=== PATIENT | female | born 1965 | race Caucasian/White ===

== ENCOUNTER 2019-01-07 15:51 | Inpatient (IN) | payer MEDICARE ==
[~2019-01-07] VITALS: Ht 160 cm; Wt 124.7 kg
[2019-01-07] MEDS ORDERED: ADVAIR 250/501 DISK INH (16:05)
[2019-01-07] MEDS ORDERED: SYMBICORT 16010.2 GM INH (16:05)
[2019-01-07] MEDS ORDERED: IPRAT-ALBUT 0.5-3 ML UPD (16:05)
[2019-01-07] MEDS ORDERED: CYMBALTA60 MG PO (16:05)
[2019-01-07] MEDS ORDERED: EPIPEN 2-P0.3 MG/0.3 IM (16:05)
[2019-01-07] MEDS ORDERED: LISINOPRIL2.5 MG PO (16:06)
[2019-01-07] MEDS ORDERED: BUPROPION HCL100 M1 PO (16:06)
[2019-01-07] MEDS ORDERED: TOPROL XL50 MG PO (16:07)
[2019-01-07] MEDS ORDERED: NOVOLOG100 UNIT/1 SC (16:08)
[2019-01-07] MEDS ORDERED: GLIPIZIDE10 MG PO (16:08)
[2019-01-07] MEDS ORDERED: LEVEMIR FL100 UNIT/1 SC (16:09)
[2019-01-07] MEDS ORDERED: GLUCOPHAGE1000 MG PO (16:09)
[2019-01-07] MEDS ORDERED: CELEXA40 MG PO (16:10)
[2019-01-07] MEDS ORDERED: ZOCOR80 MG PO (16:10)
[2019-01-07] MEDS ORDERED: PLAVIX75 MG PO (16:10)
[2019-01-07] MEDS ORDERED: ESTRACE 0.5 MG0.5 MG PO (16:11)
[2019-01-07] MEDS ORDERED: PROTONIX40 MG PO (16:11)
[2019-01-07] MEDS ORDERED: LASIX40 MG PO (16:11)
[2019-01-07 16:45] LABS: BASOPHILS 0.2 % (0-2); EOSINOPHILS 1.3 % (0-7); HEMATOCRIT 43.7 % (36.0-48.0); HEMOGLOBIN 14.2 g/dL (12-16); IMMATURE GRANULOCYTES 0.6 % (0-5); LYMPHOCYTES 23.7 % (15-50); MCHC 32.5 g/dL (31.0-37.0); MCV 92.2 fL (80.0-100.0); MEAN PLATELET VOLUME 10.4 fL (7.4-10.4); MONOCYTES 5.4 % (2-11); NEUTROPHILS 68.8 % (40-80); PLATELET COUNT 249 10x3/uL (130-400); RBC 4.74 10x6/uL (4.00-5.40); RDW 14.5 % (11.5-14.5); WBC 16.2 10x3/uL (4.8-10.8)
[2019-01-07 17:15] LABS: ALKALINE PHOSPHATASE 111 U/L (46-116); ALT (SGPT) 16 U/L (10-68); BILIRUBIN - TOTAL 0.29 mg/dL (0.2-1.3); CALC OSMOLALITY 296 mosm/kg (275-300); CARBON DIOXIDE 34.2 mmol/L (21.0-32.0); CHLORIDE - SERUM 98 mmol/L (98-107); CREATININE - SERUM 0.7 mg/dL (0.6-1.3); POTASSIUM - SERUM 3.9 mmol/L (3.5-5.1); PROTEIN - SERUM 6.9 g/dL (6.4-8.2); SODIUM 139 mmol/L (136-145); TROPONIN-I < 0.017 ng/mL (0.000-0.060); UREA NITROGEN 9 mg/dL (7-18); eGFR NON AFRICAN AMERICAN > 90 mL/min (90-120)
[2019-01-07 17:17] LABS: GLUCOSE 464 mg/dL (74-106)
[2019-01-07 17:38] LABS: KETONE - SERUM NEGATIVE (NEGATIVE)
[2019-01-07 17:41] LABS: MAGNESIUM - SERUM 1.5 mg/dL (1.8-2.4)
[2019-01-07 18:46] VITALS: BP 197/64
--- NOTE | 2019-01-07 18:47 | NUR ---
URINE SPECIMEN OBTIANED, LABELED AT BS AND SENT TO LAB
[2019-01-07 19:00] LABS: APPEARANCE CLEAR (CLEAR); COLOR YELLOW (YELLOW)
[2019-01-07 19:01] LABS: BILIRUBIN NEGATIVE (NEGATIVE); GLUCOSE NEGATIVE (NEGATIVE); KETONE NEGATIVE (NEGATIVE); NITRITE NEGATIVE (NEGATIVE); PROTEIN NEGATIVE (NEGATIVE); UROBILINOGEN NORMAL (NORMAL)
--- NOTE | 2019-01-07 19:05 | NUR ---
REPORT TO LARISA STRINGER
--- NOTE | 2019-01-07 20:35 | NUR ---
PT AMBULATED TO RESTROOM INDEPENDENTLY.
[2019-01-07 23:10] VITALS: BP 180/52; BMI 48.8
[2019-01-08] VITALS: BP 180/52
[2019-01-08 04:00] VITALS: BP 179/61
[2019-01-08 07:35] LABS: BASOPHILS 0.1 % (0-2); EOSINOPHILS 0 % (0-7); HEMATOCRIT 44.1 % (36.0-48.0); HEMOGLOBIN 14.5 g/dL (12-16); LYMPHOCYTES 10.9 % (15-50); MCH 30.3 pg (26.0-34.0); MCHC 32.9 g/dL (31.0-37.0); MCV 92.1 fL (80.0-100.0); MEAN PLATELET VOLUME 10.7 fL (7.4-10.4); MONOCYTES 0.5 % (2-11); NEUTROPHILS 87.5 % (40-80); PLATELET COUNT 247 10x3/uL (130-400); RBC 4.79 10x6/uL (4.00-5.40); RDW 14.4 % (11.5-14.5); WBC 17.4 10x3/uL (4.8-10.8)
[2019-01-08 08:04] LABS: CALCIUM 9.2 mg/dL (8.5-10.1); CARBON DIOXIDE 32.5 mmol/L (21.0-32.0); CHLORIDE - SERUM 96 mmol/L (98-107); CREATININE - SERUM 0.8 mg/dL (0.6-1.3); MAGNESIUM - SERUM 1.5 mg/dL (1.8-2.4); PHOSPHOROUS 2.9 mg/dL (2.5-4.9); PRO BNP 251 pg/mL (0-125); SODIUM 137 mmol/L (136-145); eGFR NON AFRICAN AMERICAN 79 mL/min (90-120)
[2019-01-08 08:08] LABS: CALC OSMOLALITY 295 mosm/kg (275-300); UREA NITROGEN 12 mg/dL (7-18)
[2019-01-08 08:09] LABS: GLUCOSE 487 mg/dL (74-106)
[2019-01-08 09:00] VITALS: BP 169/55
--- NOTE | 2019-01-08 09:50 | NUR ---
PT ALERT X 4. BREATH SOUNDS CLEAR BILAT, 3L O2 PER NC. PT REPORTING PAIN OF 6/10 TO RIBS FROM COUGHING. IV TO LEFT AC, PATENT, DRESSING CDI. BED LOW, CALL LIGHT IN REACH. NO OTHER NEEDS AT THIS TIME.
[2019-01-08 11:31] VITALS: Ht 160 cm; Wt 124.7 kg
[2019-01-08 17:23] VITALS: BP 154/51
[2019-01-08 20:07] VITALS: BP 144/50
[2019-01-09 00:31] VITALS: BP 161/59
[2019-01-09 04:23] VITALS: BP 153/54
[2019-01-09 07:01] LABS: GLUCOSE 449 mg/dL (74-106)
[2019-01-09 09:09] VITALS: BP 177/70
[2019-01-09 09:25] LABS: BASOPHILS 0.1 % (0-2); EOSINOPHILS 0 % (0-7); HEMATOCRIT 42.6 % (36.0-48.0); HEMOGLOBIN 14.1 g/dL (12-16); IMMATURE GRANULOCYTES 0.5 % (0-5); LYMPHOCYTES 14.2 % (15-50); MCH 30.5 pg (26.0-34.0); MCHC 33.1 g/dL (31.0-37.0); MONOCYTES 3.3 % (2-11); NEUTROPHILS 81.9 % (40-80); PLATELET COUNT 258 10x3/uL (130-400); RBC 4.63 10x6/uL (4.00-5.40); RDW 14.6 % (11.5-14.5); WBC 15.7 10x3/uL (4.8-10.8)
--- NOTE | 2019-01-09 09:31 | NUR ---
PT ALERT X 4. BREATH SOUNDS DIMINISHED, 3L O2 PER NC. TELEMETRY IN USE. IV TO LEFT AC, PATENT, DRESSING CDI. PT REPORTING PAIN OF 7/10, MEDICATED WITH TYLENOL ORDERED, WILL MONITOR. BED LOW, CALL LIGHT IN REACH. NO OTHER NEEDS AT THIS TIME.
[2019-01-09 09:41] LABS: CALC OSMOLALITY 300 mosm/kg (275-300); CARBON DIOXIDE 33.7 mmol/L (21.0-32.0); CHLORIDE - SERUM 99 mmol/L (98-107); CREATININE - SERUM 0.8 mg/dL (0.6-1.3); POTASSIUM - SERUM 4.3 mmol/L (3.5-5.1); SODIUM 139 mmol/L (136-145); UREA NITROGEN 22 mg/dL (7-18); eGFR NON AFRICAN AMERICAN 79 mL/min (90-120)
[2019-01-09 16:29] VITALS: BP 165/57
[2019-01-09 19:14] VITALS: BP 163/58
--- NOTE | 2019-01-09 19:15 | NUR ---
PATIENT SITTING UP AT THE SIDE OF THE BED AND DENIES NEEDS AT THIS TIME. NO S/S OF DISTRESS. VSS, BLOOD PRESSURE ELEVATED. BED IN LOWEST POSITION AND CALL LIGHT WITHIN REACH. ENCOURAGED THE PATIENT TO CALL IF SHE HAS NEEDS. WILL CONTINUE TO MONITOR.
[2019-01-10] VITALS (7 sets, daily range): BP systolic 162–180; BP diastolic 52–73
[2019-01-10 04:42] LABS: BASOPHILS 0 % (0-2); EOSINOPHILS 0 % (0-7); HEMATOCRIT 41.7 % (36.0-48.0); HEMOGLOBIN 13.5 g/dL (12-16); IMMATURE GRANULOCYTES 0.7 % (0-5); LYMPHOCYTES 13.3 % (15-50); MCH 29.7 pg (26.0-34.0); MCHC 32.4 g/dL (31.0-37.0); MCV 91.9 fL (80.0-100.0); MEAN PLATELET VOLUME 10.6 fL (7.4-10.4); MONOCYTES 5.1 % (2-11); NEUTROPHILS 80.9 % (40-80); PLATELET COUNT 252 10x3/uL (130-400); RBC 4.54 10x6/uL (4.00-5.40); RDW 14.3 % (11.5-14.5); WBC 17.7 10x3/uL (4.8-10.8)
[2019-01-10 04:51] LABS: ANION GAP 7.1 mmol/L (8-16); CALCIUM 8.8 mg/dL (8.5-10.1); CARBON DIOXIDE 37.1 mmol/L (21.0-32.0); CREATININE - SERUM 0.9 mg/dL (0.6-1.3); POTASSIUM - SERUM 4.2 mmol/L (3.5-5.1)
--- NOTE | 2019-01-10 07:00 | NUR ---
PATIENT RECIEVED FROM PREVIOUS SHIFT SITTING ON SIDE OF BED, RESPIRATIONS REGULAR AND NONLABORED. 02 SAT 99% ON 3L/NC. PATIENT REPORTS NON-PRODUCTIVE COUGH. BREATH SOUNDS CLEAR BUT DIMINISHED. CL IN REACH
--- NOTE | 2019-01-10 17:24 | NUR ---
PATIENT ABLE TO TOLERATE DIET, VOIDED 450ML,PAIN CONTROLED WITH PO MEDICATIONS. IV REMOVED WITH CATH INTACT, NO REDNESS OR EDEMA AT SITE. DISCHARGE INSTRUCTIONS GIVEN TO PATIENT WITH UNDERSTANDING VOICED. PATIENT TAKEN BY WHEELCHAIR TO PRIVATE CAR
--- NOTE | 2019-01-10 18:07 | MORECARE ---
CASE MANAGEMENT DISCHARGE SUMMARY PATIENT: EB ORDOÑEZ UNIT: [id number] ADM DATE: 01/07/19 AGE: 53 : 65 SEX: F ROOM/BED: D.1202 AUTHOR: JUSTO TINEO PHYSICIAN: REFERRING PHYSICIAN: EDSON MONTEMAYOR MD DATE OF SERVICE: 01/10/19 Discharge Plan Patient Name: EB ORDOÑEZ Facility: [facility]:[place] : 1965 Planned Disposition: Home Anticipated Discharge Date: Discharge Date: Expected LOS: Initial Reviewer: [email or web address] Initial Review Date: 01/10/2019 Generated: 01/10/19 7:07 pm Patient Name: EB ORDOÑEZ Page [id number] at 1807 All edits/amendments must be made on the electronic document DICTATION DATE: 01/10/191806 BUILDING MAINTENANCE WORKER: BONNIE 01/10/191806 RPT#: [id number] DC DATE: STATUS: ADM IN [facility] [address] [place] [address] END OF REPORT
--- NOTE | 2019-01-10 18:14 | MORECARE ---
CASE MANAGEMENT DISCHARGE SUMMARY PATIENT: EB ORDOÑEZ UNIT: [id number] ADM DATE: 01/07/19 AGE: 53 : 65 SEX: F ROOM/BED: D.1202 AUTHOR: JUSTO TINEO PHYSICIAN: REFERRING PHYSICIAN: EDSON MONTEMAYOR MD DATE OF SERVICE: 01/10/19 Discharge Plan Patient Name: EB ORDOÑEZ Facility: [facility]:[place] : 1965 Planned Disposition: Home Anticipated Discharge Date: Discharge Date: Expected LOS: Initial Reviewer: [email or web address] Initial Review Date: 01/10/2019 Generated: 01/10/19 7:14 pm DCPIA - Discharge Planning Initial Assessment Updated by [email or web address]: Gypsy Black on 01/10/19 6:09 pm * Is the patient Alert and Oriented? Yes * How many steps to enter\exit or inside your home? * PCP NO PCP - plans [facility] using [facility] * Pharmacy [facility] [place]? * Preadmission Environment Home with Family * ADLs Independent * Other Equipment cpap, home 02 / port 02 ([facility]), w/c * List name and contact numbers for known caregivers / representatives who currently or will assist patient after discharge: Sravani Shannon - daughter- [phone] hSivam Sarmiento Lonny Boyfriend - [phone] * Verbal permission to speak to the caregivers and representatives has been obtained from the patient. Yes * Community resources currently utilized None * Additional services required to return to the preadmission environment? No * Can the patient safely return to the preadmission environment? Yes * Has this patient been hospitalized within the prior 30 days at any hospital? No Last DP export: 01/10/19 5:07 p Patient Name: EB ORDOÑEZ Page 81211 at 1814 All edits/amendments must be made on the electronic document DICTATION DATE: 01/10/191813 MEDIA STRATEGIST: BONNIE 01/10/191813 RPT#: [id number] DC DATE: STATUS: ADM IN [facility] [address] [place] [address] END OF REPORT
--- NOTE | 2019-01-10 18:22 | MORECARE ---
CASE MANAGEMENT DISCHARGE SUMMARY PATIENT: EB ORDOÑEZ UNIT: [id number] ADM DATE: 01/07/19 AGE: 53 : 65 SEX: F ROOM/BED: D.1202 AUTHOR: NOMAN,DOC PHYSICIAN: REFERRING PHYSICIAN: EDSON MONTEMAYOR MD DATE OF SERVICE: 01/10/19 Discharge Plan Patient Name: EB ORDOÑEZ Facility: [facility]:[place] : 1965 Planned Disposition: Home Anticipated Discharge Date: Discharge Date: Expected LOS: Initial Reviewer: [email or web address] Initial Review Date: 01/10/2019 Generated: 01/10/19 7:21 pm Comments DCP- Discharge Planning Updated by [email or web address]: Gypsy Black on 01/10/19 5:[address] Patient Name: EB ORDOÑEZ Admission Status: ER Accout number: [id number] Admission Date: 01-07-2019 : 1965 Admission Diagnosis: Attending: EDSON MONTEMAYOR Current LOS: 3 Anticipated DC Date: Planned Disposition: Home Primary Insurance: MEDICARE A & B Discharge Planning Comments: CM met with patient to complete initial dc planning assessment. CM educated patient on the CM role and verbal consent given by patient to complete assessment. Patient lives at home with her boyfriend and his family where she is independent with her care. At discharge patient plans to return home and feels this is a safe discharge. CM discussed availability of home health, rehab services, and medical equipment. Patient will have family drive her home upon discharge. Patient has a nebulizer and home o2 ( [facility] ) Patient stated that she just moved here from [place]. Patient stated that her [place] Medicaid expires today and she is concerned about getting her Medications on discharge. CM called Mike with [employer] to come speak with patient to see what will need to be done to get [place] Medicaid. Patient denied any other discharge needs at this time. CM will continue to follow and will assist as needed with dc plans/needs. Power Plant Operator Apprentice: Gypys Black DCPIA - Discharge Planning Initial Assessment Updated by [email or web address]: Gyspy Black on 01/10/19 6:09 pm * Is the patient Alert and Oriented? Yes * How many steps to enter\exit or inside your home? * PCP NO PCP - plans [facility] using [facility] * Pharmacy [facility] / [place]? * Preadmission Environment Home with Family * ADLs Independent * Other Equipment cpap, home ([facility]), w/c * List name and contact numbers for known caregivers / representatives who currently or will assist patient after discharge: Sravani Shannon - daughter- [phone] Shivam Mukherjee Boyfriend - [phone] * Verbal permission to speak to the caregivers and representatives has been obtained from the patient. Yes * Community resources currently utilized None * Additional services required to return to the preadmission environment? No * Can the patient safely return to the preadmission environment? Yes * Has this patient been hospitalized within the prior 30 days at any hospital? No Coverage Notice Reviewer: [id number] Lonny Black Notice Issued Date-Time: 01/10/2019 12:50 Notice Type: IM Discharge Notice Notice Delivered To: Patient Relationship to Patient: Self Brimmer Blocker Name: Delivery Method: HAND - Hand Delivered Tyesha Days: Prior Verbal Notification: Recipient Understood Notice: Yes Recipient Signature: Yes Med Rec Note Co-signed by Attending: Coverage Notice Comment: Last DP export: 01/10/19 5:14 p Patient Name: EB ORDOÑEZ Page 61302 at 1822 All edits/amendments must be made on the electronic document DICTATION DATE: 01/10/191820 SHIPPING SPECIALIST: BONNIE 01/10/191820 RPT#: [id number] DC DATE: STATUS: ADM IN [facility] [address] [place] [address] END OF REPORT
--- NOTE | 2019-01-10 18:30 | NUR ---
PATIENT SITTING ON SIDE OF BED, NO NEEDS VOICED, CONTINUES TO HAVE NON-PRODUCTIVE COUGH. 02 SAT 98 3L/NC
--- NOTE | 2019-01-10 19:14 | NUR ---
PATIENT SITTING UP AT THE SIDE OF THE BED WITH NO S/S OF DISTRESS. PATIENT DENIES NEEDS AT THIS TIME. BED IN LOWEST POSITION AND CALL LIGHT WITHIN REACH. ENCOURAGED THE PATIENT TO CALL IF SHE HAS NEEDS. WILL CONTINUE TO MONITOR.
[2019-01-11 04:09] VITALS: BP 168/69
[2019-01-11 09:12] VITALS: BP 130/58
--- NOTE | 2019-01-11 10:07 | NUR ---
PT ALERT X 4. INSPIRATORY WHEEZES TO LOWER LOBES, 3L O2 PER NC. IV TO LEFT AC, PATENT, DRESSING CDI. TELEMETRY IN PLACE. PT REPORTING PAIN OF 4/10, WILL MONITOR. FAMILY AT BEDSIDE. BED LOW, CALL LIGHT IN REACH. NO OTHER NEEDS AT THIS TIME.
[2019-01-11 16:12] LABS: BASOPHILS 0.1 % (0-2); EOSINOPHILS 0 % (0-7); HEMATOCRIT 43.7 % (36.0-48.0); HEMOGLOBIN 14.8 g/dL (12-16); IMMATURE GRANULOCYTES 1.1 % (0-5); LYMPHOCYTES 15.5 % (15-50); MCHC 33.9 g/dL (31.0-37.0); MCV 91.4 fL (80.0-100.0); MONOCYTES 5.3 % (2-11); PLATELET COUNT 260 10x3/uL (130-400); RBC 4.78 10x6/uL (4.00-5.40); RDW 14.4 % (11.5-14.5); WBC 16.8 10x3/uL (4.8-10.8)
[2019-01-11 16:29] LABS: CALCIUM 8.5 mg/dL (8.5-10.1); CREATININE - SERUM 0.9 mg/dL (0.6-1.3)
[2019-01-11 17:04] VITALS: BP 148/54
--- NOTE | 2019-01-11 19:46 | NUR ---
REPORT RECIEVED AND ROUNDING COMPLETE. PATIENT SITTING UP ONT HE SIDE OS HER BED. RT IN ROOM. PATIENT HAS A RIGHT AC PIV THAT IS SALINE LOCKED AT THIS TIME. PATIENT RECIEVES O2 VIA NASAL CANNULA AT 3L. PATIENT STATES SHE HAS NO NEEDS AT THIS TIME. PATIENT IS SHOWING NO S/SX OD DISTRESS. PATIENT IS UPSET ABOUT PERSONAL LIFE ISSUES THAT TOOK PLACE TODAY. CALL LIGHT WITHIN REACH AND BED IN LOWEST LOCKED POSITION.
[2019-01-11 21:19] VITALS: BP 178/65
--- NOTE | 2019-01-11 22:08 | NUR ---
I have reviewed this patient and I concur with the Shift Assessment completed by the Licensed Practical Nurse today this shift.
[2019-01-12 04:29] VITALS: BP 187/61
[2019-01-12 05:34] LABS: BASOPHILS 0 % (0-2); EOSINOPHILS 0 % (0-7); HEMATOCRIT 43.7 % (36.0-48.0); HEMOGLOBIN 14.4 g/dL (12-16); IMMATURE GRANULOCYTES 1.2 % (0-5); LYMPHOCYTES 17.5 % (15-50); MCH 29.8 pg (26.0-34.0); MCV 90.3 fL (80.0-100.0); MEAN PLATELET VOLUME 11.2 fL (7.4-10.4); MONOCYTES 5.8 % (2-11); NEUTROPHILS 75.5 % (40-80); PLATELET COUNT 258 10x3/uL (130-400); RBC 4.84 10x6/uL (4.00-5.40); RDW 14.3 % (11.5-14.5); WBC 14.8 10x3/uL (4.8-10.8)
[2019-01-12 05:59] LABS: CALC OSMOLALITY 293 mosm/kg (275-300); CALCIUM 8.8 mg/dL (8.5-10.1); CARBON DIOXIDE 39.5 mmol/L (21.0-32.0); CHLORIDE - SERUM 98 mmol/L (98-107); CREATININE - SERUM 0.8 mg/dL (0.6-1.3); GLUCOSE 243 mg/dL (74-106); MAGNESIUM - SERUM 1.3 mg/dL (1.8-2.4); POTASSIUM - SERUM 3.8 mmol/L (3.5-5.1); SODIUM 142 mmol/L (136-145); UREA NITROGEN 22 mg/dL (7-18); eGFR NON AFRICAN AMERICAN 79 mL/min (90-120)
--- NOTE | 2019-01-12 08:00 | NUR ---
PT SITTING ON SIDE OF BED. EATING BREAKFAST. O2 AT 3L VIA NC. PT WANTS CUP OF COFFEE. GOT PT ANOTHER CUP OF COFFEE. PT HAS NO OTHER NEEDS AT THIS TIME. BED LOW. CL IN REACH.
[2019-01-12 08:30] VITALS: BP 153/54
--- NOTE | 2019-01-12 10:09 | NUR ---
Nutrition Follow-up: Diet: Diabetic PO intake: 100% Labs noted: Glu 243H. Meds noted: metformin, levemir, glipizide, SSI, lasix, zithromax, rocephin. Wt: 275# (01/08/19). +BM. Skin assessment reviewed. Continue current nutrition regimen. RD Following
--- NOTE | 2019-01-12 11:00 | NUR ---
DR. ADAIR STATES PT CAN AMBULATE HALLWAYS AND WALK TO [facility].
[2019-01-12 12:21] VITALS: BP 130/64
--- NOTE | 2019-01-12 14:44 | NUR ---
NO FLUTTER VALVES IN STORAGE ROOM. CALLED RT AND THEY STATE THEY WILL BRING ONE.
--- NOTE | 2019-01-12 14:47 | NUR ---
RT TOOK PT FLUTTER VALVE AND DID TEACHING.
--- NOTE | 2019-01-12 14:49 | NUR ---
PT UP WALKING HALLWAY WITH DAUGHTER.
--- NOTE | 2019-01-12 15:03 | NUR ---
DR. SAMPSON STATED TO ME HE WANTS PT TO GET A SHOWER TODAY. I SPOKE WITH PT ABOUT TAKING A SHOWER TODAY. SHE STATES SHE WILL TAKE ONE ONCE HER BOYFRIEND BRINGS HER CLEANS CLOTHES LATER TODAY. I VERBALIZED UNDERSTANDING.
[2019-01-12 16:38] VITALS: BP 163/62
--- NOTE | 2019-01-12 19:39 | NUR ---
PATIENT SITTING UP ON SIDE OF BED. PATIENT ASKED FOR SUPPLIES TO TAKE A SHOWER. ENCOURAGED PATIENT TO CALL WITH ANY OTHER NEEDS. BED IN LOW POSITION. CALL LIGHT WITHIN REACH.
[2019-01-12 21:44] VITALS: BP 140/51
[2019-01-13 01:45] VITALS: BP 132/60
[2019-01-13 04:23] VITALS: BP 162/60
--- NOTE | 2019-01-13 07:10 | NUR ---
REPORT RECEIVED FROM STRETCHER LEVELER OPERATOR HELPER AND PATIENT CARE ASSUMED. PATIENT LAYING IN BED ON LEFT SIDE WITH EYES CLOSED AND BREATHING EVENLY. PATIENT IS STABLE AND VSS. WILL CONTINUE WITH PLAN OF CARE. SR UP X 2 BED IN LOW POSITION AND CALL LIGHT IN REACH.
--- NOTE | 2019-01-13 07:10 | NUR ---
REPORT RECEIVED FROM E BUSINESS SPECIALIST AND PATIENT CARE ASSUMED. PATIENT SITTING UP IN BED CRYING AND IV IS OUT. PATIENT STATES IV IS JUST CAME OUT. PATIENT STATES THAT SHE IS UPSET ABOUT ALL HER MEDICAL ISSUES. SPENT SEVERAL MINUTES ATTEMPTING TO CONSOLE PATIENT. WILL SEEK ASSISTANCE WITH IV ACCESS THIS PATIENT IS A VERY DIFFICULT TO GAIN IV ACCESS.
[2019-01-13 08:10] VITALS: BP 150/54
[2019-01-13 08:11] LABS: CALC OSMOLALITY 297 mosm/kg (275-300); CALCIUM 8.8 mg/dL (8.5-10.1); CARBON DIOXIDE 40.3 mmol/L (21.0-32.0); CHLORIDE - SERUM 98 mmol/L (98-107); CREATININE - SERUM 0.8 mg/dL (0.6-1.3); GLUCOSE 328 mg/dL (74-106); MAGNESIUM - SERUM 1.5 mg/dL (1.8-2.4); POTASSIUM - SERUM 4.2 mmol/L (3.5-5.1); SODIUM 140 mmol/L (136-145); UREA NITROGEN 28 mg/dL (7-18); eGFR NON AFRICAN AMERICAN 79 mL/min (90-120)
[2019-01-13 08:27] LABS: BASOPHILS 0.1 % (0-2); EOSINOPHILS 0 % (0-7); HEMATOCRIT 43.8 % (36.0-48.0); HEMOGLOBIN 14.2 g/dL (12-16); IMMATURE GRANULOCYTES 0.9 % (0-5); LYMPHOCYTES 15.9 % (15-50); MCHC 32.4 g/dL (31.0-37.0); NEUTROPHILS 77.1 % (40-80); PLATELET COUNT 257 10x3/uL (130-400); RBC 4.73 10x6/uL (4.00-5.40); RDW 14.6 % (11.5-14.5); WBC 17.3 10x3/uL (4.8-10.8)
[2019-01-13 08:28] LABS: MCV 92.6 fL (80.0-100.0)
--- NOTE | 2019-01-13 09:30 | NUR ---
NO VASCULAR ACCESS NURSE AVAILABLE TODAY. SPOKE WITH AND RECEIVED ORDER FOR PICC AND CONSULTED IR. PATIENT TO BE DC TO HOME AND WILL NEED VANCOMYCIN IV FOR TWO WEEKS AT HOME. CONSENT OBTAINED AND SIGNED. P
--- NOTE | 2019-01-13 11:30 | NUR ---
PATIENT SITTING UP IN BED WATCHING TV. PATIENT DENIES ANY NEEDS OR PAIN. PATIENT IS STABLE AND VSS. WILL CONTINUE TO MONITOR, SR UP X 2 BED IN LOW POSITION AND CALL LIGHT IN REACH.
[2019-01-13 12:29] VITALS: BP 139/64
--- NOTE | 2019-01-13 12:30 | NUR ---
PATIENT IS STABLE AND VSS. PATIENT DENIES ANY NEEDS OR PAIN. PATIENT IS NPO. PATIENT TO IR LAB VIA WC AND IR TEAM.
--- NOTE | 2019-01-13 13:30 | NUR ---
PATIENT RETURNED FROM IR LAB VIA IR TEAM AND WC. PATIENT IS STABLE AND VSS. NEW PICC LINE TO LEFT UPPER ARM. PATIENT DENIES ANY NEEDS OR PAIN. WILL CONTINUE TO MONITOR. SR UP X 2 BED IN LOW POSITION AND CALL LIGHT IN REACH.
--- NOTE | 2019-01-13 15:30 | NUR ---
DR ADAIR ON UNIT AND NEW ORDERS RECEVIED. PATIENT IS HAVING CRYING SPELLS OFF AND ON. NEW ORDER RECEIVED FOR VALIUM 2.5 MP PO PRN. WILL MEDICATE PATIENT WHEN AVAIABLE IN [facility].
[2019-01-13 15:49] VITALS: BP 145/50
--- NOTE | 2019-01-13 17:44 | NUR ---
PATIENT LAYING IN BED WITH EYES CLOSED AND BREATHING EVENLY. WILL CONTINUE TO MONITOR. SR UP X 2 BED IN LOW POSITION AND CALL LIGHT IN REACH.
[2019-01-13 19:58] VITALS: BP 170/66
[2019-01-14] VITALS: BP 173/74
[2019-01-14 04:00] VITALS: BP 166/58
[2019-01-14 06:13] LABS: BASOPHILS 0.1 % (0-2); EOSINOPHILS 0 % (0-7); HEMATOCRIT 43.2 % (36.0-48.0); HEMOGLOBIN 13.9 g/dL (12-16); IMMATURE GRANULOCYTES 1.2 % (0-5); LYMPHOCYTES 12.8 % (15-50); MCH 29.7 pg (26.0-34.0); MCHC 32.2 g/dL (31.0-37.0); MCV 92.3 fL (80.0-100.0); MEAN PLATELET VOLUME 11.3 fL (7.4-10.4); MONOCYTES 5.3 % (2-11); NEUTROPHILS 80.6 % (40-80); PLATELET COUNT 249 10x3/uL (130-400); RBC 4.68 10x6/uL (4.00-5.40); RDW 14.6 % (11.5-14.5); WBC 17.1 10x3/uL (4.8-10.8)
[2019-01-14 06:30] LABS: ANION GAP 6.4 mmol/L (8-16); CALCIUM 8.7 mg/dL (8.5-10.1); CARBON DIOXIDE 39.2 mmol/L (21.0-32.0); MAGNESIUM - SERUM 1.7 mg/dL (1.8-2.4); POTASSIUM - SERUM 4.6 mmol/L (3.5-5.1)
[2019-01-14 08:00] VITALS: BP 177/62
--- NOTE | 2019-01-14 10:02 | NUR ---
PATIENT IS ALERT/ORIENT. CALL LIGHT WITHIN REACH. RESPITORY THERAPY IN ROOM FOR TREATMENT. VOICES NO NEEDS AT THIS TIME. WILL CONTINUE WITH PLAN OF CARE
[2019-01-14 12:00] VITALS: BP 168/68
[2019-01-14] MEDS ORDERED: LISINOPRIL10 MG PO (13:06)
[2019-01-14] MEDS ORDERED: PREDNISONE10 MG PO (13:07)
--- NOTE | 2019-01-14 13:51 | NUR ---
DR ADAIR INTO SEE THIS PATIENT. DISCHARGE ORDERS GIVEN FROMN DR ADAIR AND DR SAMPSON
--- NOTE | 2019-01-14 15:24 | NUR ---
DISCHARGE INSTRUCTIONS GIVEN TO PATIENT. PATIENT WAITING FOR A RIDE
--- NOTE | 2019-01-14 15:42 | NUR ---
PATIENTS RIDE HERE TO TAKE PATENT HOME. PATIENT HELPED OUT TO CAR BY STAFF
--- NOTE | 2019-01-14 19:38 | MORECARE ---
CASE MANAGEMENT DISCHARGE SUMMARY PATIENT: EB ORDOÑEZ UNIT: [id number] ADM DATE: 01/07/19 AGE: 53 : 65 SEX: F ROOM/BED: D.1202 AUTHOR: NOMAN,DOC PHYSICIAN: REFERRING PHYSICIAN: EDSON MONTEMAYOR MD DATE OF SERVICE: 01/14/19 Discharge Plan Patient Name: EB ORDOÑEZ Facility: [facility]:[place] : 1965 Planned Disposition: Home Anticipated Discharge Date: Discharge Date: 01/14/2019 Expected LOS: Initial Reviewer: [email or web address] Initial Review Date: 01/10/2019 Generated: 01/14/19 8:37 pm Comments DCP- Discharge Planning Updated by [email or web address]: Gypsy Black on 01/14/19 6:[address] CM worked on getting prices of discharge medications and worked on assisting with discharge meds. After CM had worked on Medications and trying to set up assistance. Patient stated she had all of her meds but the prednisone. [place] $6.80 and she would be able to pick that up on the way home. D/C IMM signed @ 1210. CM will continue to follow and assist as needed with discharge planning / needs DCP- Discharge Planning Updated by [id number]: Gypsy Black on 01/10/19 5:[address] Patient Name: EB ORDOÑEZ Admission Status: ER Accout number: [id number] Admission Date: 01-07-2019 : 1965 Admission Diagnosis: Attending: EDSON MONTEMAYOR Current LOS: 3 Anticipated DC Date: Planned Disposition: Home Primary Insurance: MEDICARE A & B Discharge Planning Comments: CM met with patient to complete initial dc planning assessment. CM educated patient on the CM role and verbal consent given by patient to complete assessment. Patient lives at home with her boyfriend and his family where she is independent with her care. At discharge patient plans to return home and feels this is a safe discharge. CM discussed availability of home health, rehab services, and medical equipment. Patient will have family drive her home upon discharge. Patient has a nebulizer and home o2 ( [facility] ) Patient stated that she just moved here from [place]. Patient stated that her [place] Medicaid expires today and she is concerned about getting her Medications on discharge. CM called Mike with [employer] to come speak with patient to see what will need to be done to get [place] Medicaid. Patient denied any other discharge needs at this time. CM will continue to follow and will assist as needed with dc plans/needs. Carrot Harvester: Gypsy Black DCPIA - Discharge Planning Initial Assessment Updated by [email or web address]: Gypsy Black on 01/10/19 6:09 pm * Is the patient Alert and Oriented? Yes * How many steps to enter\exit or inside your home? * PCP NO PCP - plans [facility] using [facility] * Pharmacy [facility] / [place]? * Preadmission Environment Home with Family * ADLs Independent * Other Equipment cpap, home ([facility]), w/c * List name and contact numbers for known caregivers / representatives who currently or will assist patient after discharge: Sravani Shannon - daughter- [phone] Shivam Mukherjee Boyfriend - [phone] * Verbal permission to speak to the caregivers and representatives has been obtained from the patient. Yes * Community resources currently utilized None * Additional services required to return to the preadmission environment? No * Can the patient safely return to the preadmission environment? Yes * Has this patient been hospitalized within the prior 30 days at any hospital? No Coverage Notice Reviewer: [email or web address] - Gypsy Black Notice Issued Date-Time: 01/10/2019 12:50 Notice Type: IM Discharge Notice Notice Delivered To: Patient Relationship to Patient: Self Membership Secretary Name: Delivery Method: HAND - Hand Delivered Tyesha Days: Prior Verbal Notification: Recipient Understood Notice: Yes Recipient Signature: Yes Med Rec Note Co-signed by Attending: Coverage Notice Comment: Last DP export: 01/10/19 5:22 p Patient Name: EB ORDOÑEZ Page 21647 at 1938 All edits/amendments must be made on the electronic document DICTATION DATE: 01/14/191936 LEHR TENDER: BONNIE 01/14/191936 RPT#: [id number] DC DATE:01/14/19 STATUS: DIS IN [facility] [address] [place] [address] END OF REPORT
--- NOTE | 2019-01-14 20:41 | MORECARE ---
CASE MANAGEMENT DISCHARGE SUMMARY PATIENT: EB ORDOÑEZ UNIT: [id number] ADM DATE: 01/07/19 AGE: 53 : 65 SEX: F ROOM/BED: D.1202 AUTHOR: NOMAN,DOC PHYSICIAN: REFERRING PHYSICIAN: EDSON MONTEMAYOR MD DATE OF SERVICE: 01/14/19 Discharge Plan Patient Name: EB ORDOÑEZ Facility: [facility]:[place] : 1965 Planned Disposition: Home Anticipated Discharge Date: Discharge Date: 01/14/2019 Expected LOS: Initial Reviewer: [email or web address] Initial Review Date: 01/10/2019 Generated: 01/14/19 9:41 pm Comments DCP- Discharge Planning Updated by [email or web address]: Gypsy Black on 01/14/19 6:[address] CM worked on getting prices of discharge medications and worked on assisting with discharge meds. After CM had worked on Medications and trying to set up assistance. Patient stated she had all of her meds but the prednisone. [place] $6.80 and she would be able to pick that up on the way home. D/C IMM signed @ 1210. CM will continue to follow and assist as needed with discharge planning / needs DCP- Discharge Planning Updated by [email or web address]: Gypsy Black on 01/10/19 5:[address] Patient Name: EB ORDOÑEZ Admission Status: ER Accout number: [id number] Admission Date: 01-07-2019 : 1965 Admission Diagnosis: Attending: EDSON MONTEMAYOR Current LOS: 3 Anticipated DC Date: Planned Disposition: Home Primary Insurance: MEDICARE A & B Discharge Planning Comments: CM met with patient to complete initial dc planning assessment. CM educated patient on the CM role and verbal consent given by patient to complete assessment. Patient lives at home with her boyfriend and his family where she is independent with her care. At discharge patient plans to return home and feels this is a safe discharge. CM discussed availability of home health, rehab services, and medical equipment. Patient will have family drive her home upon discharge. Patient has a nebulizer and home o2 ( [facility] ) Patient stated that she just moved here from [place]. Patient stated that her [place] Medicaid expires today and she is concerned about getting her Medications on discharge. CM called Mike with [employer] to come speak with patient to see what will need to be done to get [place] Medicaid. Patient denied any other discharge needs at this time. CM will continue to follow and will assist as needed with dc plans/needs. Nuclear Cardiology Technologist: Gypsy Black DCPIA - Discharge Planning Initial Assessment Updated by [id number]: Gypsy Black on 01/10/19 6:09 pm * Is the patient Alert and Oriented? Yes * How many steps to enter\exit or inside your home? * PCP NO PCP - plans [facility] using [facility] * Pharmacy [facility] / [place]? * Preadmission Environment Home with Family * ADLs Independent * Other Equipment cpap, home ([facility]), w/c * List name and contact numbers for known caregivers / representatives who currently or will assist patient after discharge: Sravani Shannon - daughter- [phone] Shivam Mukherjee Boyfriend - [phone] * Verbal permission to speak to the caregivers and representatives has been obtained from the patient. Yes * Community resources currently utilized None * Additional services required to return to the preadmission environment? No * Can the patient safely return to the preadmission environment? Yes * Has this patient been hospitalized within the prior 30 days at any hospital? No Coverage Notice Reviewer: [id number] Lonny Black Notice Issued Date-Time: 01/10/2019 12:50 Notice Type: IM Discharge Notice Notice Delivered To: Patient Relationship to Patient: Self Patented Hogshead Assembler Name: Delivery Method: HAND - Hand Delivered Tyesha Days: Prior Verbal Notification: Recipient Understood Notice: Yes Recipient Signature: Yes Med Rec Note Co-signed by Attending: Coverage Notice Comment: Reviewer: [email or web address] Lonny Black Notice Issued Date-Time: 01/14/2019 12:10 Notice Type: IM Discharge Notice Notice Delivered To: Patient Relationship to Patient: Self Patented Hogshead Assembler Name: Delivery Method: HAND - Hand Delivered Tyesha Days: Prior Verbal Notification: Recipient Understood Notice: Yes Recipient Signature: Yes Med Rec Note Co-signed by Attending: Coverage Notice Comment: Last DP export: 01/14/19 6:38 p Patient Name: EB ORDOÑEZ Page 63941 at 2040 All edits/amendments must be made on the electronic document DICTATION DATE: 01/14/192040 TOY PARTS FORMER SUPERVISOR: BONNIE 01/14/192040 RPT#: [id number] DC DATE:01/14/19 STATUS: DIS IN [facility] [address] [place] [address] END OF REPORT
--- NOTE | 2019-02-01 14:43 | CN ---
PATIENT NAME:EB ORDOÑEZ MEDICAL RECORD: [id number] : 65 LOCATION:D.M3 D.1202 ADMIT DATE: 01/07/19 ACCOUNT: [id number] CONSULTING PHYSICIAN: LORENA LAMB MD REFERRING PHYSICIAN: CAMPBELL LUNDBERG MD DATE OF CONSULTATION: 01/08/2019 CONSULT REQUESTING PHYSICIAN: Campbell Lundberg MD REASON FOR CONSULTATION: Dyspnea and jscqo-ss-igegvhm hypoxic respiratory failure. HISTORY OF PRESENT ILLNESS: Ms. Ordoñez is a 53-year-old female who has a history of COPD, chronic hypoxic respiratory failure, coronary artery disease, obstructive sleep apnea, and diabetes mellitus type 2. The patient just moved from in November from [place]. She is coughing. She is wheezing. She has shortness of breath with mild exertion. On admission to the ER, her pO2 was low on ABG. The patient was admitted for COPD exacerbation. REVIEW OF SYSTEMS: As in history of present illness. PAST MEDICAL HISTORY: 1. COPD. 2. Chronic hypoxic respiratory failure. 3. Obstructive sleep apnea. 4. Congestive heart failure. 5. Hypertension. 6. Coronary artery disease, status post angioplasty and stent placement. 7. Type 2 diabetes mellitus. 8. Morbid obesity. 9. Anxiety and depression. 10. History of gastrointestinal bleed. PAST SURGICAL HISTORY: 1. . 2. Hysterectomy. 3. Spinal cyst removed from the knee. 4. Surgery for carpal tunnel syndrome. 5. Cardiac catheterization and stent placement. ALLERGIES: SHE IS ALLERGIC TO MESALAMINE. MEDICATIONS: On Comet Solutionstech is reviewed. PERSONAL AND SOCIAL HISTORY: The patient is smoking, every day smoker. She is a nondrinker. FAMILY HISTORY: Noncontributory. PHYSICAL EXAMINATION: GENERAL: Now, the patient is morbidly obese. VITAL SIGNS: The blood pressure is 179/61, pulse is 82, respirations 18, temperature is 98.2, and SpO2 is 98% on 3 liters nasal cannula. HEENT: Conjunctivae are pink. Sclerae are not icteric. NECK: Supple, no JVD. CONSULT REPORT [id number] EB ORDOÑEZ CHEST: The chest excursion is minimal on both sides. There is wheeze on forceful expiration. No crackles. HEART: Rhythm regular, normal sound, no murmur. ABDOMEN: Soft, bowel sounds present. No hepatosplenomegaly. RECTAL: Deferred. EXTREMITIES: No cyanosis, no clubbing, no pedal edema. CENTRAL NERVOUS SYSTEM: The patient is awake and alert. There are no cranial nerve abnormalities. CHEST RADIOGRAPH: There is hyperinflation, no acute infiltrate. LABORATORY DATA: CBC: WBC 16.2, hemoglobin 14.2, hematocrit 43.7, and platelet count 249. ABG: The pH was 7.41, pCO2 was 50.3, pO2 was 46, and bicarbonate is 32.2. The lactic acid was 2.84. The D-dimer was 0.51. Chemistry, the proBNP was 251. IMPRESSION: 1. Acute exacerbation of chronic obstructive pulmonary disease. 2. Cnmus-nl-ffemioi hypoxic respiratory failure. 3. Tracheobronchitis. 4. Leukocytosis. 5. Tobacco dependence syndrome. 6. History of congestive heart failure and coronary artery disease. 7. Obstructive sleep apnea. 8. Morbid obesity. RECOMMENDATION: 1. Albuterol ipratropium nebulizer, Brovana, and budesonide nebulizer. 2. Supplemental oxygen. 3. Methylprednisolone IV. Continue empiric Zithromax and Rocephin. 4. DVT prophylaxis. 5. Strict glycemic control. 6. Follow up labs and chest radiograph. 7. The patient was counseled to quit smoking. The patient will need COPD workup as an outpatient. Dr. Lundberg thank you for involving me in the care of this patient. TRANSINT:[id number] Voice Confirmation ID: [id number] DOCUMENT ID: [id number] LORENA LAMB MD at 1443 CC: [id number] DICTATION DATE: 01/08/191734 ABRASIVE WHEEL MOLDER: 01/09/19 0413 DIS IN 01/14/19 [facility] [address] [id number]
== END 2019-01-14 15:56 | disposition home or self-care (01) | DRG 189 ==
LOC: D.ER 15:51 → D.M3 21:41
PROVIDERS: Emergency Medicine; Family Medicine; ADMIT Internal Medicine Nephrology; ATTEND Internal Medicine Nephrology
PROC: 5A09457 Assistance with Respiratory Ventilation, 24-96 Consecutive Hours, Continuous Positive Airway Pressure (ICD-10-PCS; principal; 2019-01-08)
DX: J96.22 Acute and chronic respiratory failure with hypercapnia (principal); J44.1 Chronic obstructive pulmonary disease with (acute) exacerbation; F17.213 Nicotine dependence, cigarettes, with withdrawal; Z68.42 Body mass index [BMI] 45.0-49.9, adult; J44.0 Chronic obstructive pulmonary disease with (acute) lower respiratory infection; J96.21 Acute and chronic respiratory failure with hypoxia; J20.9 Acute bronchitis, unspecified; Z99.81 Dependence on supplemental oxygen; I25.10 Atherosclerotic heart disease of native coronary artery without angina pectoris; F32.9 Major depressive disorder, single episode, unspecified; E78.5 Hyperlipidemia, unspecified; E11.9 Type 2 diabetes mellitus without complications; E66.01 Morbid (severe) obesity due to excess calories; I11.0 Hypertensive heart disease with heart failure; I50.9 Heart failure, unspecified

== ENCOUNTER → 2019-09-27 13:35 | Outpatient (CLI) | payer MEDICARE, MEDICAID ==
[2019-05-25 08:40] VITALS: BMI 48.9
[~2019-09-27 13:35] MED LIST: ADVAIR 250/501 DISK INH; BAYER CHEWABLE81 MG PO; BUPROPION HCL100 M1 PO; CELEXA40 MG PO; CYMBALTA60 MG PO; EPIPEN 2-P0.3 MG/0.3 IM; ESTRACE 0.5 MG0.5 MG PO; GLIPIZIDE10 MG PO; GLUCOPHAGE1000 MG PO; IPRAT-ALBUT 0.5-3 ML INH; IPRAT-ALBUT 0.5-3 ML UPD; LASIX40 MG PO; LEVEMIR FL100 UNIT/1 SC; LISINOPRIL10 MG PO; LISINOPRIL2.5 MG PO; NOVOLOG100 UNIT/1 SC; PLAVIX75 MG PO; PREDNISONE10 MG PO; PROTONIX40 MG PO; SYMBICORT 16010.2 GM INH; TOPROL XL50 MG PO; ZOCOR80 MG PO
== END | disposition home or self-care (01) ==
LOC: D.MAMMO 13:15
PROVIDERS: ATTEND Family Medicine
DX: Z12.31 Encounter for screening mammogram for malignant neoplasm of breast (principal)

== ENCOUNTER 2019-11-11 19:59 | Inpatient (IN) | payer MEDICARE, MEDICAID ==
[~2019-11-11] VITALS: Ht 160 cm; Wt 127.3 kg
[2019-11-11 20:38] LABS: BASOPHILS 0.2 % (0-2); EOSINOPHILS 3.2 % (0-7); HEMATOCRIT 41.2 % (36.0-48.0); HEMOGLOBIN 13.3 g/dL (12-16); IMMATURE GRANULOCYTES 0.9 % (0-5); LYMPHOCYTES 24.5 % (15-50); MCH 29.6 pg (26.0-34.0); MCHC 32.3 g/dL (31.0-37.0); MCV 91.6 fL (80.0-100.0); MEAN PLATELET VOLUME 9.7 fL (7.4-10.4); NEUTROPHILS 65.2 % (40-80); PLATELET COUNT 229 10x3/uL (130-400); RDW 14.2 % (11.5-14.5)
[2019-11-11 21:06] LABS: ALBUMIN 2.6 g/dL (3.4-5.0); ANION GAP 7.4 mmol/L (8-16); BILIRUBIN - TOTAL 0.31 mg/dL (0.2-1.3); C-REACTIVE PROTEIN 2.4 mg/dL (0.0-0.9); CARBON DIOXIDE 32.4 mmol/L (21.0-32.0); POTASSIUM - SERUM 3.8 mmol/L (3.5-5.1); PROTEIN - SERUM 6.7 g/dL (6.4-8.2)
[2019-11-11 21:38] VITALS: BP 164/102
[2019-11-11 22:23] VITALS: BP 149/91
[2019-11-11 22:56] LABS: BILIRUBIN NEGATIVE (NEGATIVE); GLUCOSE 1000 mg/dL (NEGATIVE); KETONE SMALL mg/dL (NEGATIVE); NITRITE NEGATIVE (NEGATIVE); RED CELLS - URINE 0-5 /hpf (0-5); UROBILINOGEN NORMAL (NORMAL)
[2019-11-11 23:26] VITALS: BP 151/88
[2019-11-12 00:10] VITALS: BP 206/76
[2019-11-12 01:18] VITALS: BP 178/72; BMI 50.0
[2019-11-12 05:08] LABS: BASOPHILS 0.2 % (0-2); EOSINOPHILS 4.2 % (0-7); HEMATOCRIT 39.5 % (36.0-48.0); HEMOGLOBIN 12.8 g/dL (12-16); IMMATURE GRANULOCYTES 1.1 % (0-5); LYMPHOCYTES 31.1 % (15-50); MCH 29.5 pg (26.0-34.0); MCHC 32.4 g/dL (31.0-37.0); MEAN PLATELET VOLUME 9.9 fL (7.4-10.4); MONOCYTES 7.4 % (2-11); PLATELET COUNT 254 10x3/uL (130-400); RBC 4.34 10x6/uL (4.00-5.40); RDW 14.3 % (11.5-14.5); WBC 13.1 10x3/uL (4.8-10.8)
[2019-11-12 05:19] LABS: INR 1.02 (0.85-1.17); PROTIME 13.3 SECONDS (11.6-15.0)
[2019-11-12 05:20] LABS: APTT 27.3 SECONDS (22.8-39.4)
[2019-11-12 05:35] LABS: CALC OSMOLALITY 284 mosm/kg (275-300); CALCIUM 9.2 mg/dL (8.5-10.1); CARBON DIOXIDE 31.6 mmol/L (21.0-32.0); CHLORIDE - SERUM 102 mmol/L (98-107); CREATININE - SERUM 0.8 mg/dL (0.6-1.3); MAGNESIUM - SERUM 1.4 mg/dL (1.8-2.4); PHOSPHOROUS 2.7 mg/dL (2.5-4.9); POTASSIUM - SERUM 3.4 mmol/L (3.5-5.1); PRO BNP 249 pg/mL (0-125); SODIUM 139 mmol/L (136-145); UREA NITROGEN 12 mg/dL (7-18); eGFR NON AFRICAN AMERICAN 79 mL/min (90-120)
[2019-11-12 05:49] LABS: GLUCOSE 227 mg/dL (74-106)
[2019-11-12 09:30] VITALS: BP 187/73
[2019-11-12 12:17] VITALS: Ht 160 cm; Wt 127.3 kg
[2019-11-12 13:02] LABS: FERRITIN 150 ng/mL (3-244); LDH 243 U/L (81-234)
--- NOTE | 2019-11-12 15:53 | NUR ---
PT NEGATIVE FOR COVID 19. ISOLATIONS SIGNS TAKEN OFF DOOR AND PT INFORMED. BLOOD SUGAR OF 453, 20UNITS GIVEN PER S/S AND NOTIFIED JUSTO.
--- NOTE | 2019-11-12 16:07 | NUR ---
GAVE EXTRA 8UNITS PER HIGH S/S. PT UP TO SIDE OF BED, TALKING ON THE PHONE, DENIES ANY NEEDS AT THIS TIME. CALL LIGHT IN REACH, NAD NOTED, WILL CONTINUE TO MONITOR.
[2019-11-13] VITALS: BP 170/66
[2019-11-13 04:00] VITALS: BP 166/53
[2019-11-13 07:22] LABS: BASOPHILS 0.2 % (0-2); EOSINOPHILS 0.7 % (0-7); HEMATOCRIT 39.7 % (36.0-48.0); HEMOGLOBIN 12.7 g/dL (12-16); MCH 29.1 pg (26.0-34.0); MCV 90.8 fL (80.0-100.0); MEAN PLATELET VOLUME 9.9 fL (7.4-10.4); MONOCYTES 7.2 % (2-11); NEUTROPHILS 62.9 % (40-80); PLATELET COUNT 269 10x3/uL (130-400); RBC 4.37 10x6/uL (4.00-5.40); RDW 14.2 % (11.5-14.5)
[2019-11-13 07:33] LABS: CALC OSMOLALITY 289 mosm/kg (275-300); CALCIUM 8.9 mg/dL (8.5-10.1); CARBON DIOXIDE 33.6 mmol/L (21.0-32.0); CHLORIDE - SERUM 102 mmol/L (98-107); CREATININE - SERUM 0.8 mg/dL (0.6-1.3); GLUCOSE 269 mg/dL (74-106); MAGNESIUM - SERUM 1.6 mg/dL (1.8-2.4); POTASSIUM - SERUM 3.3 mmol/L (3.5-5.1); SODIUM 141 mmol/L (136-145); UREA NITROGEN 12 mg/dL (7-18); eGFR NON AFRICAN AMERICAN 79 mL/min (90-120)
[2019-11-13 07:35] LABS: PHOSPHOROUS 3.5 mg/dL (2.5-4.9)
[2019-11-13 09:38] VITALS: BP 170/54
[2019-11-13 13:30] VITALS: BP 179/1
[2019-11-13 20:20] VITALS: BP 155/68
--- NOTE | 2019-11-13 20:51 | NUR ---
INITIAL ROUNDS COMPLETED AT 1910 HRS. PT DENIED ANY DISCOMFORT. ASSESSMENT COMPLETED AT 2004 H RS. VSS. R PER CM HR 72. ALERT AND ORIENTED TO PERSON, PLACE AND TIME. BARTON. IV TO LAC SL. LUNGS DIMINISHED IN BASES BILAT. 1999 FSBS 590. LAB CALLED FOR STAT GLUCOSE. 28 UNITS REG INSULIN GIVEN PER S/S TO UPPER R ARM. CALL LIGHT WITHIN REACH.
--- NOTE | 2019-11-13 22:14 | NUR ---
FSBS FROM LAB 563. [facility] PAGED ANT 2148 AND 2210 HRS.
--- NOTE | 2019-11-13 22:23 | NUR ---
IV OUT AT 2100 HRS. ATTEMPT IV X2 AT 2145 HRS WITHOUT SUCCESS. FAMILY MEMBER AT BEDSIDE.
--- NOTE | 2019-11-13 22:50 | NUR ---
SPOKE WITH Alexy ANNARDING PT'S BS. NEW ORDERS RECEIVED AND NOTED.
--- NOTE | 2019-11-14 00:05 | NUR ---
IV STARTED #22 TO INNER L FA WITH ATTEMPT. FSBS 450 AND 442. LAB NOTOIFED FOR STAT DRAW. [facility] NOTIFIED.
--- NOTE | 2019-11-14 00:11 | NUR ---
Alexy MCKENNA APN RETURNS PAGE. INFORMED OF PT'S BS OF 450. TO GIVE 28 UNITS PER S/S.
--- NOTE | 2019-11-14 02:36 | NUR ---
PT RESTING WITH EYES CLOSED. RESP EVEN AND REGULAR. CALL LIGHT WITHIN REACH.
[2019-11-14 04:00] VITALS: BP 176/66
--- NOTE | 2019-11-14 04:06 | NUR ---
PT RESTING WITH EYES CLOSED. RESP EVEN AND REGULAR. CALL LIGHT WITHIN REACH.
[2019-11-14 05:23] LABS: BASOPHILS 0.2 % (0-2); EOSINOPHILS 0.2 % (0-7); HEMATOCRIT 38.4 % (36.0-48.0); HEMOGLOBIN 12.3 g/dL (12-16); IMMATURE GRANULOCYTES 0.9 % (0-5); LYMPHOCYTES 23.1 % (15-50); MCH 28.9 pg (26.0-34.0); MCV 90.1 fL (80.0-100.0); MEAN PLATELET VOLUME 10.3 fL (7.4-10.4); MONOCYTES 6.5 % (2-11); NEUTROPHILS 69.1 % (40-80); PLATELET COUNT 265 10x3/uL (130-400); RBC 4.26 10x6/uL (4.00-5.40); WBC 12.7 10x3/uL (4.8-10.8)
[2019-11-14 05:39] LABS: ANION GAP 7.4 mmol/L (8-16); CALCIUM 8.4 mg/dL (8.5-10.1); CARBON DIOXIDE 33.8 mmol/L (21.0-32.0); CREATININE - SERUM 0.9 mg/dL (0.6-1.3); MAGNESIUM - SERUM 1.4 mg/dL (1.8-2.4); PHOSPHOROUS 2.9 mg/dL (2.5-4.9); POTASSIUM - SERUM 3.2 mmol/L (3.5-5.1)
--- NOTE | 2019-11-14 06:07 | NUR ---
BS DOWN TO 340 THIS AM. PT DENIED ANY DISCOMFORT DURING NIGHT. NEEDS MET; WILL CONTINUE TO MONITOR.
[2019-11-14] MEDS ORDERED: TRULICITY1.5 MG/0.5 SC (06:27)
[2019-11-14 08:00] VITALS: BP 162/67
--- NOTE | 2019-11-14 09:57 | NUR ---
SPOKE WITH GUNNER REDDY ABOUT PLACING PT ON ELECTROLYTE PROTOCOL AND PT WANTING TRULICITY RESTARTED. GUNNER REDDY STATES SHE WILL LOOK AT PLACING PT ON EP BUT WE DO NOT CARRY TRULICITY AND WE TREAT WHILE PT IS IN HOSPITAL WITH SLIDING SCALE AND IF PT WANTS TO TAKE TRULICITY FROM HOME SHE MAY. I VERBALIZED UNDERSTANDING.
[2019-11-14 11:00] VITALS: BP 185/69
--- NOTE | 2019-11-14 13:07 | NUR ---
PT SITTING IN RECLINER CHAIR. TALKING ON PHONE. BED LOW. CL IN REACH. WILL CONTINUE WITH POC.
--- NOTE | 2019-11-14 13:55 | NUR ---
FSBS 413. TREATED AND NOTIFIED GUNNER REDDY AND SHE STATES SHE WILL LOOK AT IT. I VERBALIZED UNDERSTANDING.
[2019-11-14 15:00] VITALS: BP 114/64
--- NOTE | 2019-11-14 17:04 | NUR ---
RECHECKED FSBS 586 ON RT HAND AND LT HAND 515. ORDERED STAT LAB GLUCOSE.
--- NOTE | 2019-11-14 17:35 | NUR ---
I have reviewed this patient and I concur with the Shift Assessment completed by the Licensed Practical Nurse today this shift.
[2019-11-14 17:38] LABS: BILIRUBIN NEGATIVE (NEGATIVE); GLUCOSE 1000 mg/dL (NEGATIVE); KETONE NEGATIVE (NEGATIVE); NITRITE NEGATIVE (NEGATIVE); UROBILINOGEN NORMAL (NORMAL)
[2019-11-14] MEDS ORDERED: LISINOPRIL2.5 MG PO (17:39)
[2019-11-14] MEDS ORDERED: CELEXA10 MG PO (17:40)
[2019-11-14 17:42] LABS: BACTERIA FEW /hpf (NEGATIVE); EPITHELIAL CELLS 0-5 /hpf (0-5); RED CELLS - URINE NONE SEEN /hpf (0-5); WHITE CELLS - URINE 0-5 /hpf (NEGATIVE)
--- NOTE | 2019-11-14 17:44 | NUR ---
REVIEWED PT'S HOME MED LIST WITH [facility]. SPOKE WITH DR. GRIER ABOUT PT'S BS BEING HIGH AND STAT GLUCOSE ORDERED. HE STATES HE WILL CHANGE PT'S MEDS FOR DIABETES. I VERBALIZED UNDERSTANDING.
--- NOTE | 2019-11-14 17:48 | NUR ---
DR. GRIER GAVE ME V.O. TO ORDER PT'S HOME MEDS FOR DIABETES.
--- NOTE | 2019-11-14 17:54 | NUR ---
DR. GRIER GAVE ME V.O. TO ORDER PT'S HOME MEDS THAT HAVE NOT BEEN RESTARTED.
--- NOTE | 2019-11-14 17:56 | NUR ---
VERIFIED WITH DR. GRIER THAT HE WANTS REGULAR SLIDING SCALE AND NOVOLOG AND HE STATES YES.
--- NOTE | 2019-11-14 19:48 | NUR ---
UNABLE TO PULL CYMBALTA FROM [facility]. CALLED [facility] IN PHARMACY AND SHE STATES THEY WILL COME FILL IT. I VERBALIZED UNDERSTANDING.
[2019-11-14 20:00] VITALS: BP 174/46
--- NOTE | 2019-11-14 20:34 | NUR ---
RECEIVED BEDSIDE REPORT AND ROUNDING COMPLETE. PATIENT IS ALERT AND ORIENTED, RESTING COMFORTABLY IN BED. RESPIRATIONS ARE EVEN AND UNLABORED. NO S/S OF DISTRESS. NO C/O PAIN. CALL LIGHT WITHIN REACH. WILL CPOC.
--- NOTE | 2019-11-15 00:54 | NUR ---
NOTIFIED ARACELIS LOUIS APN OF FSBS 520. 28 UNITS OF HUMULIN GIVEN.
[2019-11-15 00:59] VITALS: BP 180/43
[2019-11-15 05:04] LABS: BASOPHILS 0.1 % (0-2); EOSINOPHILS 0.1 % (0-7); HEMATOCRIT 39.9 % (36.0-48.0); IMMATURE GRANULOCYTES 0.9 % (0-5); LYMPHOCYTES 24.3 % (15-50); MCH 29.3 pg (26.0-34.0); MCHC 32.6 g/dL (31.0-37.0); MCV 90.1 fL (80.0-100.0); MEAN PLATELET VOLUME 10.1 fL (7.4-10.4); MONOCYTES 6.7 % (2-11); NEUTROPHILS 67.9 % (40-80); PLATELET COUNT 272 10x3/uL (130-400); RBC 4.43 10x6/uL (4.00-5.40); RDW 14.1 % (11.5-14.5)
[2019-11-15 05:11] VITALS: BP 130/52
[2019-11-15 05:20] LABS: ANION GAP 4.5 mmol/L (8-16); CALCIUM 8.9 mg/dL (8.5-10.1); CARBON DIOXIDE 35.7 mmol/L (21.0-32.0); CREATININE - SERUM 0.9 mg/dL (0.6-1.3); MAGNESIUM - SERUM 1.5 mg/dL (1.8-2.4); PHOSPHOROUS 2.7 mg/dL (2.5-4.9)
[2019-11-15 05:21] LABS: POTASSIUM - SERUM 3.2 mmol/L (3.5-5.1)
[2019-11-15 08:00] VITALS: BP 178/60
[2019-11-15 11:00] VITALS: BP 152/66
--- NOTE | 2019-11-15 13:15 | MORECARE ---
CASE MANAGEMENT DISCHARGE SUMMARY PATIENT: EB ORDOÑEZ UNIT: [id number] ADM DATE: 11/11/19 AGE: 54 : 65 SEX: F ROOM/BED: D.2124 AUTHOR: JUSTO TINEO PHYSICIAN: REFERRING PHYSICIAN: TEMI FERNÁNDEZ MD DATE OF SERVICE: 11/15/19 Discharge Plan Patient Name: EB ORDOÑEZ [facility] [facility] 1965 Planned Disposition: Home or Self Care Anticipated Discharge Date: Discharge Date: Expected LOS: Initial Reviewer: [email or web address] Initial Review Date: 11/12/2019 Generated: 11/15/19 2:14 pm DCPIA - Discharge Planning Initial Assessment Updated by [email or web address]: Kisha Benavidez on 11/15/19 1:12 pm * Is the patient Alert and Oriented? Yes * How many steps to enter\exit or inside your home? 3/0 * PCP larissa Santiago * Pharmacy [place] * Preadmission Environment Home with Family * ADLs Independent * Equipment CPAP Nebulizer Oxygen Wheelchair * List name and contact numbers for known caregivers / representatives who currently or will assist patient after discharge: STACI Delarosa) [phone] * Verbal permission to speak to the caregivers and representatives has been obtained from the patient. Yes * Community resources currently utilized None * Additional services required to return to the preadmission environment? No * Can the patient safely return to the preadmission environment? Yes * Has this patient been hospitalized within the prior 30 days at any hospital? No Patient Name: EB ORDOÑEZ Page [id number] at 1315 All edits/amendments must be made on the electronic document DICTATION DATE: 11/15/19 1314 FRUIT I FARMWORKER: BONNIE 11/15/19 1314 RPT#: [id number] DC DATE: STATUS: ADM IN [facility] [address] [place] [address] END OF REPORT
--- NOTE | 2019-11-15 13:25 | NUR ---
Nutrition Follow-up: Eating well. Diet: Diabetic PO intake: 100% x 7 meals Wt: 280# (11/12) Last BM: 11/14 Labs noted: K+ 3.2, Glu 239, Mg 1.5 Meds noted: Prednisone, Glucotrol, Lantus, Humulin, Glucophage, Lasix, NS @ 30, electrolyte protocol -Monitor wt; noted daily wts ordered. -RD following.
--- NOTE | 2019-11-15 14:10 | MORECARE ---
CASE MANAGEMENT DISCHARGE SUMMARY PATIENT: EB ORDOÑEZ UNIT: [id number] ADM DATE: 11/11/19 AGE: 54 : 65 SEX: F ROOM/BED: D.0948 AUTHOR: JUSTO TINEO PHYSICIAN: REFERRING PHYSICIAN: TEMI FERNÁNDEZ MD DATE OF SERVICE: 11/15/19 Discharge Plan Patient Name: EB ORDOÑEZ Facility: [facility]:[place] : 1965 Planned Disposition: Home or Self Care Anticipated Discharge Date: Discharge Date: Expected LOS: Initial Reviewer: [email or web address] Initial Review Date: 11/12/2019 Generated: 11/15/19 3:10 pm Comments DCP- Discharge Planning Updated by [email or web address]: Kisha Benavidez on 11/15/19 1:[address] Patient Name: EB ORDOÑEZ Admission Status: ER Accout number: [id number] Admission Date: 11-11-2019 : 1965 Admission Diagnosis: Attending: TEMI FERNÁNDEZ Current LOS: 4 Anticipated DC Date: Planned Disposition: Home or Self Care Primary Insurance: [employer] ADV Discharge Planning Comments: CM met with patient to complete initial dc planning assessment. CM educated patient on the CM role and verbal consent given by patient to complete assessment. CM verified patient's address, phone number, and emergency contact phone numbers. [place] significant other Staci [phone] and his parents. At discharge patient plans to return home and feels this is a safe discharge. CM discussed availability of home health, rehab services, and medical equipment. Pt has a wheelchair, cpap, nebs, home, and portable oxygen. Patient denied known discharge needs at this time. SABRINA signed to resume [facility], declination signed for . Transportation provider at discharge will be Staci. DC IMM delivered, explained, signed by the patient, and placed in chart. Signed form also left with the patient. CM will continue to follow and will assist as needed with dc plans/needs. Manager University: Kisha Benavidez DCPIA - Discharge Planning Initial Assessment Updated by [id number]: Kisha Benavidez on 11/15/19 1:12 pm * Is the patient Alert and Oriented? Yes * How many steps to enter\exit or inside your home? 3/0 * PCP larissa Santiago * Pharmacy [place] * Preadmission Environment Home with Family * ADLs Independent * Equipment CPAP Nebulizer Oxygen Wheelchair * List name and contact numbers for known caregivers / representatives who currently or will assist patient after discharge: STACI Delarosa) [phone] * Verbal permission to speak to the caregivers and representatives has been obtained from the patient. Yes * Community resources currently utilized None * Additional services required to return to the preadmission environment? No * Can the patient safely return to the preadmission environment? Yes * Has this patient been hospitalized within the prior 30 days at any hospital? No Last DP export: 11/15/19 12:15 pm Patient Name: EB ORDOÑEZ Page [id number] at 1410 All edits/amendments must be made on the electronic document DICTATION DATE: 11/15/190 AUDIO VIDEO MECHANIC: BONNIE 11/15/19 1410 RPT#: [id number] DC DATE: STATUS: ADM IN [facility] [address] [place] [address] END OF REPORT
[2019-11-15 15:00] VITALS: BP 118/67
--- NOTE | 2019-11-15 15:30 | NUR ---
DR. GRIER WANTS TO KNOW IF DR. MCKEON IS OK TO DC PT. PAGED DR. MCKEON.
--- NOTE | 2019-11-15 15:44 | NUR ---
LEFT FA 2GG IV OUT. PT STATES IT CAME OUT WHEN SHE WAS TAKING HERSELF TO THE BATHROOM. WILL NOT RESTART IV AT THIS TIME BECAUSE PT IS A POSSIBLE DC IF OK WITH DR. MCKEON.
--- NOTE | 2019-11-15 15:54 | NUR ---
SPOKE WITH DR. MCKEON HE STATES HE IS OK WITH PT TO DC TODAY AND PT DOES NOT NEED WALK TEST OR PFT'S JUST A CHEST XR AND F/U IN 8 WEEKS. I VERBALIZED UNDERSTANDING. NOTIFED GUNNER REDDY AND DR. MCKEON SPOKE WITH DR. GRIER.
--- NOTE | 2019-11-15 16:00 | NUR ---
DR. GRIER STATES PT WAS TEARFUL ABOUT DC'ING TODAY. HE STATES TO DC PREDNISONE AND MAYBE PT WILL DC TOMORROW.
--- NOTE | 2019-11-15 16:05 | NUR ---
DR. MCKEON STATES TO ME TO DC IV ABX AND START AZITHROMYCIN AND OMNICEF ORAL ABX AND DON'T RESTART IV. I VERBALIZED UNDERSTANDING.
[2019-11-15 20:00] VITALS: BP 149/53
[2019-11-16] VITALS: BP 153/58
[2019-11-16 04:00] VITALS: BP 159/70
--- NOTE | 2019-11-16 04:05 | NUR ---
I have reviewed this patient and I concur with the Shift Assessment completed by the Licensed Practical Nurse today this shift.
[2019-11-16 04:55] LABS: BASOPHILS 0.2 % (0-2); EOSINOPHILS 0.7 % (0-7); HEMATOCRIT 39.2 % (36.0-48.0); HEMOGLOBIN 12.5 g/dL (12-16); IMMATURE GRANULOCYTES 0.7 % (0-5); LYMPHOCYTES 36.7 % (15-50); MCH 29.1 pg (26.0-34.0); MCHC 31.9 g/dL (31.0-37.0); MCV 91.4 fL (80.0-100.0); MEAN PLATELET VOLUME 10.1 fL (7.4-10.4); MONOCYTES 7.3 % (2-11); NEUTROPHILS 54.4 % (40-80); PLATELET COUNT 267 10x3/uL (130-400); RBC 4.29 10x6/uL (4.00-5.40); RDW 14.6 % (11.5-14.5); WBC 14.8 10x3/uL (4.8-10.8)
[2019-11-16 05:12] LABS: CALC OSMOLALITY 288 mosm/kg (275-300); CALCIUM 8.7 mg/dL (8.5-10.1); CARBON DIOXIDE 37.9 mmol/L (21.0-32.0); CHLORIDE - SERUM 106 mmol/L (98-107); CREATININE - SERUM 0.8 mg/dL (0.6-1.3); MAGNESIUM - SERUM 1.6 mg/dL (1.8-2.4); POTASSIUM - SERUM 3.7 mmol/L (3.5-5.1); SODIUM 144 mmol/L (136-145); UREA NITROGEN 16 mg/dL (7-18); eGFR NON AFRICAN AMERICAN 79 mL/min (90-120)
[2019-11-16 05:13] LABS: GLUCOSE 123 mg/dL (74-106); PHOSPHOROUS 3.6 mg/dL (2.5-4.9)
[2019-11-16 09:04] VITALS: BP 136/55
[2019-11-16] MEDS ORDERED: ZITHROMAX250 MG PO (10:30)
[2019-11-16] MEDS ORDERED: FEXOFENADINE HC60 MG PO (10:30)
[2019-11-16] MEDS ORDERED: OMNICEF300 MG PO (10:30)
[2019-11-16] MEDS ORDERED: FLUTICASONE PRO16 GM NASAL (10:33)
[2019-11-16] MEDS ORDERED: MUCINEX600 MG PO (10:33)
[2019-11-16] MEDS ORDERED: TESSALON PERLE100 MG PO (10:33)
[2019-11-16] MEDS ORDERED: IPRAT-ALBUT 0.5-3 ML UPD (10:35)
[2019-11-16] MEDS ORDERED: PULMICORT0.5 MG/21 UPD (10:36)
--- NOTE | 2019-11-16 13:36 | NUR ---
PT DISCHARGED HOME VIA WHEELCHAIR WITH FAMILY. PIV REMOVED WITH CATHETER TIP FULLY INTACT. PT SIGNED PROPER DISCHARGE INSTRUCTIONS AND REMOVED ALL VALUABLES FROM THE ROOM. TELEMETRY REMOVED AND RETURNED.
--- NOTE | 2019-11-16 17:14 | MORECARE ---
CASE MANAGEMENT DISCHARGE SUMMARY PATIENT: EB ORDOÑEZ UNIT: [id number] ADM DATE: 11/11/19 AGE: 54 : 65 SEX: F ROOM/BED: D.2398 AUTHOR: JUSTO TINEO PHYSICIAN: REFERRING PHYSICIAN: TEMI FERÁNNDEZ MD DATE OF SERVICE: 11/16/19 Discharge Plan Patient Name: EB ORDOÑEZ Facility: [facility]:[place] : 1965 Planned Disposition: Home or Self Care Anticipated Discharge Date: Discharge Date: 11/16/2019 Expected LOS: Initial Reviewer: [email or web address] Initial Review Date: 11/12/2019 Generated: 11/16/19 6:13 pm Comments DCP- Discharge Planning Updated by [id number]: Kisha Benavidez on 11/15/19 1:[address] Patient Name: EB ORDOÑEZ Admission Status: ER Accout number: [id number] Admission Date: 11-11-2019 : 1965 Admission Diagnosis: Attending: TEMI FERNÁNDEZ Current LOS: 4 Anticipated DC Date: Planned Disposition: Home or Self Care Primary Insurance: [employer] ADV Discharge Planning Comments: CM met with patient to complete initial dc planning assessment. CM educated patient on the CM role and verbal consent given by patient to complete assessment. CM verified patient's address, phone number, and emergency contact phone numbers. [place] significant other Staci [phone] and his parents. At discharge patient plans to return home and feels this is a safe discharge. CM discussed availability of home health, rehab services, and medical equipment. Pt has a wheelchair, cpap, nebs, home, and portable oxygen. Patient denied known discharge needs at this time. SABRINA signed to resume reyna Xiong signed for . Transportation provider at discharge will be Staci. DC IMM delivered, explained, signed by the patient, and placed in chart. Signed form also left with the patient. CM will continue to follow and will assist as needed with dc plans/needs. [place] Operator: Kisha Benavidez DCPIA - Discharge Planning Initial Assessment Updated by [email or web address]: Kisha Benavidez on 11/15/19 1:12 pm * Is the patient Alert and Oriented? Yes * How many steps to enter\exit or inside your home? 3/0 * PCP larissa Santiago * Pharmacy [place] * Preadmission Environment Home with Family * ADLs Independent * Equipment CPAP Nebulizer Oxygen Wheelchair * List name and contact numbers for known caregivers / representatives who currently or will assist patient after discharge: STACI Delarosa) [phone] * Verbal permission to speak to the caregivers and representatives has been obtained from the patient. Yes * Community resources currently utilized None * Additional services required to return to the preadmission environment? No * Can the patient safely return to the preadmission environment? Yes * Has this patient been hospitalized within the prior 30 days at any hospital? No Coverage Notice Reviewer: [email or web address] Lonny Benavidez Notice Issued Date-Time: 11/15/2019 12:40 Notice Type: IM Discharge Notice Notice Delivered To: Patient Relationship to Patient: Ordnance Handler Name: Delivery Method: HAND - Hand Delivered Tyesha Days: Prior Verbal Notification: Recipient Understood Notice: Yes Recipient Signature: Yes Med Rec Note Co-signed by Attending: Coverage Notice Comment: DC IMM delivered, explained, signed by the patient, and placed in chart. Signed form also left with the patient. Reviewer: [email or web address] - Kisha Benavidez Notice Issued Date-Time: 11/15/2019 12:40 Notice Type: Patient Choice Letter Notice Delivered To: Patient Relationship to Patient: Ordnance Handler Name: Delivery Method: HAND - Hand Delivered Tyesha Days: Prior Verbal Notification: Recipient Understood Notice: Yes Recipient Signature: Yes Med Rec Note Co-signed by Attending: Coverage Notice Comment: declination signed for hh. will resume hattie Last DP export: 11/15/19 1:10 pm Patient Name: EB ORDOÑEZ Page [id number] at 1714 All edits/amendments must be made on the electronic document DICTATION DATE: 11/16/191712 HYSTER MACHINE OPERATOR: BONNIE 11/16/191712 RPT#: [id number] DC DATE:11/16/19 STATUS: DIS IN [facility] [address] [place] [address] END OF REPORT
== END 2019-11-16 13:37 | disposition home or self-care (01) | DRG 194 ==
LOC: D.ER 19:59 → D.M2 21:24
PROVIDERS: Emergency Medicine; Family Medicine; Internal Medicine Pulmonary Disease; ADMIT Family Medicine; ATTEND Family Medicine
DX: J18.9 Pneumonia, unspecified organism (principal); Z68.43 Body mass index [BMI] 50.0-59.9, adult; F17.213 Nicotine dependence, cigarettes, with withdrawal; J44.1 Chronic obstructive pulmonary disease with (acute) exacerbation; J96.12 Chronic respiratory failure with hypercapnia; J96.11 Chronic respiratory failure with hypoxia; E66.01 Morbid (severe) obesity due to excess calories; E11.65 Type 2 diabetes mellitus with hyperglycemia; I10 Essential (primary) hypertension; E78.5 Hyperlipidemia, unspecified; M19.90 Unspecified osteoarthritis, unspecified site; F41.8 Other specified anxiety disorders; M79.7 Fibromyalgia; G89.29 Other chronic pain; E83.42 Hypomagnesemia; D72.829 Elevated white blood cell count, unspecified; R60.0 Localized edema